=== PATIENT | male | born 1965 | race African-American/Black ===

== ENCOUNTER 2020-11-13 07:06 | Outpatient (CLI) | payer BC, SELFPAY ==
--- NOTE | ~2020-11-13 | MR_ITS ---
EXAMINATION: MR knee RT wo con DATE: 11/13/2020 08:31 INDICATION: Other instability, right knee. TECHNIQUE: Magnetic resonance imaging (MRI) of the right knee was performed without intravenous contr ast. Sequences included axial PD-weighted FS FSE, coronal PD-weighted FSE and PD-weighted FS FSE, sag ittal PD-weighted FSE, and sagittal T2-weighted FS FSE. COMPARISON: Right knee radiographs 10/07/2018 FINDINGS: Medial compartment: There is a radial tear of posterior horn of medial meniscus with torn bucket-handle component in the intercondylar notch. There is cartilage surface irregularity of tibial condyle and femoral condyle. T here is deep partial thickness cartilage loss of femoral condyle involving the posterior articular alberto rface. Lateral compartment: Lateral meniscus is normal. There is cartilage surface irregularity of tibial condyle. Femoral cartil age is normal. Patellofemoral compartment: There is deep partial thickness cartilage loss of patellar lateral facet. There is shallow partial-th ickness cartilage loss of medial and lateral trochlea. Ligaments and tendons: The anterior and posterior cruciate ligaments are normal. There are changes of prior sprains of media l collateral ligament and fibular collateral ligament characterized increased signal intensity proxim ally. There is mild patellar tendinopathy. Fluid: There is a small knee joint effusion. There is trace fluid in a Blandon's cyst. There is mild prepatell ar and superficial infrapatellar bursitis. IMPRESSION: 1. Moderate chondrosis of medial and patellofemoral compartments and mild chondrosis of lateral don rtment. 2. Tear of medial meniscus. 3. Small knee joint effusion. Reviewed, dictated and finalized at location A. OILER IMPRESSION: 1. Moderate chondrosis of medial and patellofemoral compartments and mild chond rosis of lateral compartment. 2. Tear of medial meniscus. 3. Small knee joint effusion.
== END 2020-11-13 07:07 | disposition home or self-care (01) ==
PROVIDERS: PCP Family Medicine; Visit Provider Family Medicine
DX: S83.241A Other tear of medial meniscus, current injury, right knee, initial encounter (principal); M25.461 Effusion, right knee; M71.21 Synovial cyst of popliteal space [Baker], right knee
CPT/HCPCS: 73721

== ENCOUNTER 2020-11-21 08:36 | Outpatient (CLI) | payer BC, SELFPAY ==
--- NOTE | 2020-11-21 08:48 | ECHO_ITS ---
Patient Info Name: Leana Guevara Age: 55 years : 1965 Gender: Male Ht: 71 in Wt: 294 lbs BSA: 2.64 m2 HR: 55 bpm BP: 149 / 91 mmHg Technical Quality: Fair Exam Date: 11/21/2020 9:15 AM Exam Location: [facility] Patient Status: Outpatient Admit Date: 11/21/2020 Staff Ordering Physician: Hadley Paz DO Plant Equipment Engineer: Dale Duncan RDCS Attending Provider: Hadley Paz DO Referring Physician: Jackson LANDAVERDE; Exam Type: CA echo dop color flow w con Study Info Indications R06.02 - Shortness of breath Complete two-dimensional, color flow and Doppler transthoracic echocardiogram is performed with contrast to opacify the left ventricle and to improve the deliniation of the left ventricle endocardial borders. Contrast/Agitated Saline Contrast/Ag. Saline: Definity Amount: 3.00 ml Administered By: Cyndi Oviedo RN Existing IV Access: Yes History/Risk Factors Shortness of breath, atrial fibrillation; HTN. Summary 1. Left ventricular chamber dimension is normal. 2. Definity contrast administered improved wall motion interpretation. 3. Left ventricular systolic function is normal, estimated at 60-65%. 4. The left ventricular diastolic function is normal. 5. E/e' 8 is minimally elevated. 6. Left atrial chamber dimension is mildly enlarged. 7. Mild pulmonary hypertension, estimated pulmonary arterial systolic pressure is 40 mmHg. Left Ventricle E/e' 8 is minimally elevated. Definity contrast administered improved wall motion interpretation. Left ventricular chamber dimension is normal. Left ventricular systolic function is normal, estimated at 60-65%. The left ventricular diastolic function is normal. Right Ventricle Right ventricular systolic function is normal based on TAPSE of 2.3 cm. Right ventricular chamber dimension is not well visualized. Left Atria Left atrial chamber dimension is mildly enlarged. Right Atria Right atrial chamber dimension is not well visualized. Aortic Valve The aortic valve is trileaflet. There is no aortic valve stenosis. There is no aortic valve regurgitation. Pulmonic Valve There is no pulmonic regurgitation. Mitral Valve There is no mitral valve stenosis. There is no mitral valve regurgitation. Tricuspid Valve There is no tricuspid valve regurgitation. Mild pulmonary hypertension, estimated pulmonary arterial systolic pressure is 40 mmHg. Pericardium/Pleural There is no pericardial effusion. Inferior Vena Cava Normal inferior vena cava with >50% collapse upon inspiration consistent with normal right atrial pressure, 5 mmHg. Aorta The aortic root size at the sinus of Valsalva is normal. Left Ventricular Outflow Tract Name Value Normal LVOT 2D LVOT Diameter 2.03 cm LVOT Doppler LVOT Peak Gradient 5 mmHg LVOT Mean Gradient 2 mmHg LVOT VTI 23.47 cm LVOT VTI/AV VTI Ratio 0.70 LVOT Stroke Volume 76.14 ml LVOT CO
== END 2020-11-21 08:37 | disposition home or self-care (01) ==
PROVIDERS: PCP Family Medicine; Visit Provider Internal Medicine Cardiovascular Disease
DX: G47.33 Obstructive sleep apnea (adult) (pediatric) (principal); Z99.89 Dependence on other enabling machines and devices; I51.7 Cardiomegaly
CPT/HCPCS: C8929

== ENCOUNTER 2021-05-28 08:44 | Outpatient (CLI) | payer BC, SELFPAY ==
--- NOTE | 2021-05-28 09:00 | ECG_ITS ---
Measurements Intervals Severy Rate: 52 P: 35 TX: 141 QRS: 68 QRSD: 124 T: -4 QT: 420 QTc: 394 Interpretive Statements SINUS BRADYCARDIA INTRAVENTRICULAR CONDUCTION DELAY MINIMAL Q WAVES- INFERIOR LEADS BORDERLINE ST-T WAVE ABNORMALITY- INFERIOR LEADS BORDERLINE ECG Electronically Signed On 05-28-2021 9:04:13 CDT by Hadley Paz D.O.
[2021-05-28 09:18] LABS: Anion Gap 11 mmol/L (8-16); Blood Urea Nitrogen 16 mg/dL (9-20); Calcium 9.2 mg/dL (8.4-10.2); Carbon Dioxide 35 mmol/L (22-30); Chloride 97 mmol/L (98-107); Estimated Glomerular Filt Rate > 60; Glucose 111 mg/dL (65-110); Potassium 3.2 mmol/L (3.4-5.0); Sodium 143 mmol/L (137-145)
== END 2021-05-28 08:45 | disposition home or self-care (01) ==
LOC: ANHSURGERY 08:50
PROVIDERS: Anesthesiology; PCP Family Medicine; Visit Provider Orthopaedic Surgery
DX: Z01.818 Encounter for other preprocedural examination (principal); I10 Essential (primary) hypertension
CPT/HCPCS: 36415; 80048; 93005

== ENCOUNTER 2021-05-31 01:51 | Day surgery (SDC) | payer BC, SELFPAY ==
[2021-05-27 14:37] VITALS: BMI 41.6
--- NOTE | 2021-05-30 14:26 | WPDANESEPPF ---
Anes - Initial Pre Proc Eval Procedure: Operation Date: 05/31/21 13:30 Proposed Procedures p Right Knee Arthroscopy, Partial Medial Meniscectomy - Rahat Lorenzo MD Date/Time: 05/30/21 14:26 Surgeon: Rahat Lorenzo MD Pre Op Diagnosis: bucket handle meniscus tear rt. knee Patient Data Age: 56 Gender: M Height: 1.8 m Weight: 135.45 kg Allergies Allergy/AdvReac Type Severity Reaction Status Date / Time No Known Allergies Allergy Verified 05/31/21 12:10 Home Medications Medication Instructions Recorded Confirmed Type potassium chloride 20 mEq 20 meq PO BID #60 tablet 04/25/20 05/31/21 Rx tablet,extended release hydrochlorothiazide 25 mg tablet 25 mg PO DAILY #30 tablet 04/15/21 05/31/21 Rx furosemide 40 mg tablet 40 mg PO QAM #30 tablet 05/16/21 05/31/21 Rx ibuprofen 800 mg tablet 800 mg PO TID PRN #60 tablet 05/20/21 05/31/21 Rx Patient hx anesthesia problems: none Family hx anesthesia problems: none PMFSH Past Medical History Medical History Body mass index (BMI) of 40.1 to 44.9 in adult Cardiac arrhythmia Essential (primary) hypertension Low vitamin B12 level KRISHAN on CPAP Polyarthritis Right knee buckling Type 2 diabetes mellitus without complications Family History Family History Father Carcinoma of colon Mother Family history of malignant neoplasm of ovary Family history of malignant neoplasm Family history of pancreatic cancer, Onset Age: 75 Social History Social History Alcohol intake: never Living arrangements: with family Spiritual care concerns: No Anes - Eval Final PreProcedure Day of Procedure 05/30/21 14:26 Patient weight: morbidly obese Heart: regular rate and rhythm Lungs: clear to auscultation and normal air movement Airway: Mallampati scale class II Neurological: alert and oriented Last oral intake: >/= 8 hours ASA classification: III Emergent: no Anesthetic plan: proceed Anesthesia type and monitoring: general LMA and standard monitoring Informed Consent: The patient's anesthetic plan and its attendant risks and benefits were discussed with the patient/family/POA. Questions were solicited and answers provided to the satisfaction of the patient/family/POA.
[2021-05-31] VITALS (7 sets, daily range): BP systolic 134–162; BP diastolic 45–87; PULSE 56–67; RESP 16–20; TEMP 36.1–36.4; O2SAT 95–100
[2021-05-31] MEDS: ACETAMINOPHEN 500 MG TABLET 1000 MG PO (12:24)
[2021-05-31] MEDS: LACTATED RINGERS 1,000 ML 30 ML IV CONT (12:40)
[2021-05-31] MEDS: KETOROLAC 15 MG/ML VIAL (*BKC) IV PUSH (12:49)
--- NOTE | 2021-05-31 13:25 | WPDHPUPDATE1 ---
History and Physical Update Update Date/Time: 05/31/21 13:25 History and Physical has been reviewed, including an updated exam of the patient. There are NO changes in the patient's condition. Risks, benefits, and alternatives have been discussed and questions answered. Patient agrees to proceed with procedure.
[2021-05-31] MEDS: ceFAZolin 3 GM/D5W 100 ML 100 ML IVPB (13:34)
[2021-05-31] MEDS: BUPIVACAINE/EPINEPHRINE 0.5% 10 ML VIAL 20 ML INFILTRATE (14:23)
--- NOTE | 2021-05-31 15:46 | P.OP_ITS ---
Procedure Note - Detailed Date of Procedure 05/31/21 Pre-op Diagnosis Medial meniscus tear rt. knee Post-op Diagnosis same Procedure Performed Arthroscopic partial medial meniscectomy, right knee with medial femoral chondroplasty. Surgeon Rahat Lorenzo MD Lining Mechanic Leda Pisano PA-C Anesthesia general Findings Complex posterior horn and medial, medial meniscus tear. Fllz-im-amyepghr chondromalacia in the medial compartment. Minimal patellofemoral changes and very subtle changes at the lateral anterior tibia only. The central weight- bearing portion of the medial femoral condyle had a large irregular area of grade 3 chondromalacia which appeared partially healed. Not amenable to microfracture. Loose edges of the defect appeared to be likely catching on the meniscus tear which was debrided. Description of Procedure Procedure Details: The patient was identified and the surgical site confirmed and signed in the preoperative holding area. Antibiotics were started per protocol. She was brought to the operative room and transferred to the OR table. A general anesthetic was administered. Supine position with the operative lower extremity position in the leg jacob after placement of a well padded tourniquet. The leg support was lowered and the contralateral limb was supported with a soft bolster. The knee was prepped and draped in the usual sterile fashion. A time-out was performed. The portal sites were marked and infiltrated with 0.5% Marcaine 20 mL. The limb was exsanguinated and the tourniquet inflated to 300 mL Hg. Standard inferolateral and inferomedial portals were established. Inflow was obtained with the saline pump. The camera was introduced. Diagnostic inspection of the joint was accomplished. The meniscus was debrided with the arthroscopic shaver and punches until stable. The radiofrequency probe was also used. There was grade 3 chondromalacia on the medial femur and grade 1 chondromalacia on the tibia. The lateral tibia had a very small area of subtle grade 1 chondromalacia. The femur was normal. The anterior cruciate ligament was intact. The trochlea had grade 2 chondromalacia. The patella grade 1. There was an area of grade 3 chondromalacia on the central weight-bearing por tion of the medial femoral condyle. The loose delaminated border was gently debrided until stable. The defect was large and irregular, not amenable to microfracture. The arthroscopic instruments were removed. The tourniquet released and wounds closed with subcutaneous 3-0 Monocryl absorbable suture. Steri strips and a sterile dressing were applied. A light elastic wrap was placed. The patient was extubated and brought to the recovery room in stable condition. Estimated Blood Loss -10.0 Complications No immediate complications Condition stable Disposition PACU
== END 2021-05-31 16:40 | disposition home or self-care (01) ==
PROVIDERS: PCP Family Medicine; Visit Provider Orthopaedic Surgery
PROC: (CPT 29870; principal; 2021-05-31 13:30)
DX: M23.221 Derangement of posterior horn of medial meniscus due to old tear or injury, right knee (principal); M94.261 Chondromalacia, right knee; M17.11 Unilateral primary osteoarthritis, right knee; M25.561 Pain in right knee; G47.33 Obstructive sleep apnea (adult) (pediatric); E66.01 Morbid (severe) obesity due to excess calories; Z68.41 Body mass index [BMI] 40.0-44.9, adult; E11.9 Type 2 diabetes mellitus without complications; I10 Essential (primary) hypertension; I49.9 Cardiac arrhythmia, unspecified; D51.9 Vitamin B12 deficiency anemia, unspecified
CPT/HCPCS: 29881; A9270; J0690; J1100; J1885; J2250; J2405; J2704; J3010; J7120

== ENCOUNTER → 2022-03-08 09:14 | Outpatient (CLI) | payer BC, SELFPAY ==
--- NOTE | ~2022-03-08 | US_ITS ---
US venous doppler LE RT DATE: 03/08/2022 09:42 INDICATION: Right lower leg pain, calf pain. Numbness in foot and toes TECHNIQUE: Real-time imaging, color flow imaging and Doppler analysis of the veins of the right lower extremity COMPARISON: None FINDINGS: The right greater saphenous vein is patent. There is spontaneous and phasic flow and normal augmentation and color flow signal and normal compression of the deep veins of the right lower extre mity. IMPRESSION: No evidence of deep venous thrombosis of right lower extremity Reviewed, dictated and finalized at Location A. Reviewed, dictated and finalized at location A.
== END ==
PROVIDERS: PCP Family Medicine; Visit Provider Family Medicine
DX: M79.661 Pain in right lower leg (principal)
CPT/HCPCS: 93971

== ENCOUNTER 2022-04-24 10:39 | Outpatient (CLI) | payer BC, SELFPAY ==
--- NOTE | 2022-04-24 12:00 | NEURO_ITS ---
Impression: # Complains of difficulty in controlling right foot during ambulation. # Right peroneal neuropathy. # Needle/EMG exam neurogenic # Possibility of higher involvement needs to be ruled out. Nerve Conduction Studies Anti Sensory Summary Table Stim Site NR Peak (ms) P-T Amp (?V) Site1 Site2 Delta-P (ms) Dist (cm) Arnel (m/s) Left Sup Fibular Anti Sensory (Ant Lat Mall) 14 cm 2.4 14.7 14 cm Ant Lat Mall 2.4 16.0 67 Right Sup Fibular Anti Sensory (Ant Lat Mall) 14 cm 3.3 10.7 14 cm Ant Lat Mall 3.3 16.0 48 Left Sural Anti Sensory (Lat Mall) Calf 3.6 15.5 Calf Lat Mall 3.6 16.0 44 Right Sural Anti Sensory (Lat Mall) NO RESPONSE Calf NR Calf Lat Mall 16.0 Motor Summary Table Stim Site NR Onset (ms) O-P Amp (mV) Site1 Site2 Delta-0 (ms) Dist (cm) Arnel (m/s) Left Lateral Plantar Motor (ADM) Med Mall 5.3 0.8 Right Lateral Plantar Motor (ADM) Med Mall 5.4 1.9 Left Peroneal Motor (Vastus Med) Ankle 3.8 3.8 Popit Ankle 9.2 44.0 48 Popit 13.0 3.7 Right Peroneal Motor (Vastus Med) POOR RESPONSE Ankle NR Popit Ankle 0.0 Popit NR Left Tibial Motor (Abd Pisano Brev) Ankle 4.5 0.7 Knee Ankle 10.5 45.0 43 Knee 15.0 1.8 Right Tibial Motor (Abd Pisano Brev) Ankle 4.8 1.8 Knee Ankle 9.3 44.0 47 Knee 14.1 1.7 F Wave Studies NR F-Lat (ms) L-R F-Lat (ms) Left Peroneal (Mrkrs) (EDB) 55.63 Right Peroneal (Mrkrs) (EDB) NO RESPONSE NR Left Tibial (Mrkrs) (Abd Hallucis) 55.88 Right Tibial (Mrkrs) (Abd Hallucis) NO RESPONSE NR EMG Side Muscle Nerve Root Ins Act Fibs Amp Dur Recrt Comment Right AntTibialis Dp Br Fibular L4-5 Nml Nml Nml >12ms Reduced Right Gastroc Tibial S1-2 Nml Nml Nml Nml Nml Right Fibularis Long Sup Br Fibular L5-S1 Nml Nml Nml >12ms Reduced Right Flex Dig Long Tibial L5-S2 Nml Nml Nml Nml Nml Right Ext Dig Brev Dp Br Fibular L5, S1 Nml Nml Nml >12ms Reduced Left AntTibialis Dp Br Fibular L4-5 Nml Nml Nml Nml Nml Left Gastroc Tibial S1-2 Nml Nml Nml Nml Nml Left Fibularis Long Sup Br Fibular L5-S1 Nml Nml Nml Nml Nml Left Flex Dig Long Tibial L5-S2 Nml Nml Nml Nml Nml Left Ext Dig Brev Dp Br Fibular L5, S1 Nml Nml Nml Nml Nml Right QuadratusFem QuadFemoris L4-5, S1 Nml Nml Nml Nml Reduced Left QuadratusFem QuadFemoris L4-5, S1 Nml Nml Nml Nml Nml MTDD
== END 2022-04-24 10:40 | disposition home or self-care (01) ==
LOC: ANHNEURO 10:40
PROVIDERS: PCP Family Medicine; Visit Provider Family Medicine
DX: M21.371 Foot drop, right foot (principal); G62.9 Polyneuropathy, unspecified
CPT/HCPCS: 95886; 95911

== ENCOUNTER 2022-05-23 10:10 | Outpatient (CLI) | payer BC, SELFPAY ==
--- NOTE | ~2022-05-23 | MR_ITS ---
EXAMINATION: MR brain/brain stem wo con DATE: 05/23/2022 10:48 INDICATION: Right-sided foot drop. Neuropathy. Weakness of the lower extremities. TECHNIQUE: Magnetic resonance imaging (MRI) of the brain and brainstem was performed without intraven ous contrast. COMPARISON: None. FINDINGS: There is no intracranial hemorrhage, acute infarction, or abnormal intracranial mass lesion . The ventricles are normal in size. The paranasal sinuses are clear. The orbits are normal. There is a trace left mastoid effusion. IMPRESSION: 1. Normal brain. Reviewed, dictated and finalized at location A. IMPRESSION: 1. Normal brain.
== END 2022-05-23 10:11 ==
PROVIDERS: PCP Family Medicine; Visit Provider Family Medicine
DX: M21.371 Foot drop, right foot (principal); R53.1 Weakness; G62.9 Polyneuropathy, unspecified
CPT/HCPCS: 70551

== ENCOUNTER 2022-05-29 16:08 | Outpatient (CLI) | payer BC, SELFPAY ==
--- NOTE | ~2022-05-29 | XR_ITS ---
EXAMINATION: XR lumbar spine 6V w bending DATE: 05/29/2022 16:42 INDICATION: Right-sided foot drop. TECHNIQUE: 7 views of lumbar spine including flexion and extension views were obtained. COMPARISON: Lumbar spine radiographs 01/27/2011 FINDINGS: There is 3 mm anterolisthesis of L4 on L5. The spine is hypomobile with flexion and extensi on. Vertebral body heights are normal. There is mildly decreased disc height at L3-L4 and L4-L5 and m oderately decreased disc height at L5-S1. There are endplate osteophytes at all levels. There are lianne dging endplate osteophytes from the thoracic spine to L2, consistent with diffuse idiopathic skeletal hyperostosis (DISH). There is multilevel facet joint osteoarthritis, severe bilaterally at L4-L5 and L5-S1. IMPRESSION: 1. Moderate lumbar spondylosis. 2. DISH. Reviewed, dictated and finalized at location A.
== END 2022-05-29 16:09 | disposition home or self-care (01) ==
PROVIDERS: PCP Family Medicine; Visit Provider Family Medicine
DX: G57.30 Lesion of lateral popliteal nerve, unspecified lower limb (principal); M21.371 Foot drop, right foot; M47.816 Spondylosis without myelopathy or radiculopathy, lumbar region; M48.16 Ankylosing hyperostosis [Forestier], lumbar region
CPT/HCPCS: 72114

== ENCOUNTER 2022-07-25 07:01 | Outpatient (CLI) | payer BC, SELFPAY ==
--- NOTE | ~2022-07-25 | MR_ITS ---
EXAMINATION: MR lumbar spine wo con DATE: 07/25/2022 07:46 INDICATION: Lumbar degenerative disc disease. Foot drop. TECHNIQUE: Magnetic resonance imaging (MRI) of the lumbar spine was performed without intravenous con trast. Sequences included sagittal T2-weighted FSE, sagittal T2-weighted FS FSE, sagittal T1-weighted FSE, and axial T2-weighted FSE. COMPARISON: Lumbar spine MRI 06/14/2014, radiographs 05/29/2022 FINDINGS: Bone alignment is normal. Vertebral body heights are normal. There is mildly decreased disc height at L3-L4 and L4-L5 and moderately decreased disc height at L5-S1. There are bridging endplate osteophytes from the thoracic spine to L2, consistent with diffuse idiopathic skeletal hyperostosis (DISH). Epidural lipomatosis is noted. The distal spinal cord signal intensity is normal. The conus m edullaris is at L2. There is a fatty filum terminale. The following disc levels are specifically disc ussed: L1-L2: The disc does not extend beyond the endplate margin. There is moderate bilateral facet joint o steoarthritis. There is no neural foraminal stenosis. There is no central canal stenosis. L2-L3: The disc is mildly bulging. There is severe bilateral facet joint osteoarthritis. There is mil d bilateral neural foraminal stenosis. There is no central canal stenosis. L3-L4: The disc is bulging. There is severe bilateral facet joint osteoarthritis. There is mild bilat eral neural foraminal stenosis. There is mild central canal stenosis. L4-L5: The disc is bulging and has an annular fissure. There is severe bilateral facet joint osteoart hritis. There is mild bilateral neural foraminal stenosis. There is mild central canal stenosis. L5-S1: The disc is bulging and has an annular fissure. There is severe bilateral facet joint osteoart hritis. There is moderate bilateral neural foraminal stenosis. There is mild central canal stenosis. IMPRESSION: 1. Moderate lumbar spondylosis, stable from 06/14/2014. Reviewed, dictated and finalized at location A.
== END 2022-07-25 07:02 | disposition home or self-care (01) ==
PROVIDERS: PCP Family Medicine; Visit Provider Family Medicine
DX: M47.817 Spondylosis without myelopathy or radiculopathy, lumbosacral region (principal); M48.07 Spinal stenosis, lumbosacral region; M21.371 Foot drop, right foot
CPT/HCPCS: 72148

== ENCOUNTER 2022-10-01 16:07 | Outpatient (CLI) | payer BC, SELFPAY ==
--- NOTE | ~2022-10-01 | MR_ITS ---
EXAMINATION: MR lower leg RT wo/w con, MR femur RT wo/w con DATE: 10/01/2022 18:11 INDICATION: Concern for right peroneal neuropathy with foot drop. TECHNIQUE: 1. Magnetic resonance imaging (MRI) of the right femur was performed without and with 20 mL Multihanc e intravenous contrast. Sequences included axial and coronal T1-weighted FSE and fluid sensitive FSE STIR Precontrast axial T1-weighted FS FSE and post contrast axial and coronal T1-weighted FS FSE wer e also obtained. 2. MRI of the right lower leg was performed without and with 20 mL Multihance intravenous contrast ut ilizing the same contrast bolus. Sequences included axial and coronal T1-weighted FSE and fluid sensi tive FSE STIR Precontrast axial T1-weighted FS FSE and post contrast axial and coronal T1-weighted F S FSE were also obtained. COMPARISON: Lumbar spine MR dated 07/25/2022 FINDINGS: There is prominent increased fluid signal in much of the musculature of the right lower leg. This inc ludes the muscles in the anterior compartment, the anterolateral compartment in the deep posterior co mpartment as well as a portion of the medial and lateral heads of the gastrocnemius muscle but relati vely spares the soleus muscle. There is also increased fluid signal in the popliteus muscle. More sub tle and more patchy increased fluid signal is also seen in portions of the biceps femoris, semitendin osus and distal semimembranosus muscles and the posterior compartment thigh. No significant abnormal muscle signal is appreciated in the extensor or abductor compartments of the thigh or in the musculat ure about the right hip. There is suboptimal fat saturation at the proximal and distal margin of each of the 3 phase of imaging findings from the pelvis through the ankle where assessment for enhancemen t is limited. There does appear to be subtle muscular enhancement which appears to coincide spatially with the regions of increased fluid signal. There is mild fatty atrophy of some of the musculature p rimarily in the calf however this appears to include a similar degree the soleus muscle which appeare d otherwise spared of the increased T2 signal and enhancement seen in the majority of the remaining m usculature of the calf. The tendons associated with the musculature in the thigh and lower leg appear normal. The sciatic nerve beginning at the sciatic notch in the pelvis and extending to the distal thigh appe ars normal in caliber with no evident impinging masses or lesions along its course or abnormal signal or enhancement. The sciatic nerve bifurcates into the common peroneal and tibial branches just above level of the knee joint and each similarly demonstrates normal caliber with no abnormal signal or en hancement as they cross the knee and extending into the lower leg. No impinging lesions or masses juan jose ntified. In particular no ganglion cysts are seen along the course of the peroneal nerve either arisi ng from the knee or the proximal tibiofibular joint. There is normal bone marrow signal throughout wi th no reactive edema or pathologic marrow replacing process. No hip, knee or ankle joint effusion. Th ere is subcutaneous edema throughout the lower leg. Mild prostatomegaly. No pathologically enlarged l ymphadenopathy at the right groin. IMPRESSION: 1. Increased muscle signal and enhancement involving the majority the muscles at the right lower leg, relatively sparing the soleus muscle and to a significantly lesser degree some of the muscles in the posterior compartment of the right thigh. This appears to involve the nerve distributions of both th e peroneal and tibial nerves with no evident impinging lesions identified along the course of either nerve or the more proximal sciatic nerve. Review of prior lumbar spine MR however does demonstrate in addition to the previous noted moderate t o severe bilateral neural foraminal stenosis at L5-S1, there is also sign
== END 2022-10-01 16:08 | disposition home or self-care (01) ==
LOC: ANHIMG 16:10
PROVIDERS: PCP Family Medicine; Visit Provider Student in an Organized Health Care Education/Training Program
DX: M21.371 Foot drop, right foot (principal); G57.30 Lesion of lateral popliteal nerve, unspecified lower limb; M48.07 Spinal stenosis, lumbosacral region
CPT/HCPCS: 73720; A9577

== ENCOUNTER 2022-11-08 07:52 | Outpatient (CLI) | payer BC, SELFPAY ==
--- NOTE | ~2022-11-08 | XR_ITS ---
EXAM: XR lumbar spine min 4V DATE: 11/08/2022 08:22 HISTORY: M54.10, left side pain, radiates down legs, NKI . COMPARISON: 05/29/2022. FINDINGS: 5 nonrib-bearing lumbar-type vertebral bodies. Pedicles intact. 3 mm anterolisthesis at L4 -5. Very limited range of motion limits evaluation for dynamic listhesis although there does appear t o be slight reduction in the anterolisthesis at L4-5. Vertebral body heights preserved. Multilevel mi ld disc space narrowing and marginal osteophytosis including large bridging anterior osteophytes. Inc idental note of large bridging osteophytes in the lower thoracic spine. Multilevel facet sclerosis an d hypertrophy with multilevel interspinous narrowing. No fracture or dislocation. IMPRESSION: Multilevel degenerative disc disease. Suspect mild dynamic listhesis at L4-5. Multilevel facet arthropathy. Reviewed, dictated and finalized at location K. IED EXERCISE PHYSIOLOGIST IMPRESSION: Multilevel degenerative disc disease. Suspect mild dynamic listhesi s at L4-5. Multilevel facet arthropathy.
--- NOTE | ~2022-11-08 | CT_ITS ---
EXAMINATION: CT lumbar spine wo con DATE: 11/08/2022 08:38 INDICATION: Back pain. TECHNIQUE: Computed tomography (CT) of the lumbar spine was performed without intravenous contrast. A utomated exposure control and iterative reconstruction technique were employed. The dose-length produ ct was 1312.62 mGy-cm. COMPARISON: Lumbar spine MRI 07/25/2022 FINDINGS: Bone alignment is normal. Vertebral body heights are normal. There are endplate osteophytes at all levels with bridging from T11 to L1 vertebral bodies. There is mildly decreased disc height a t L3-L4, L4-L5, and L5-S1. Osseous central spinal canal is developmentally small in lumbar spine. The following disc levels are specifically discussed: L1-L2: The disc does not extend beyond the endplate margin. There is moderate right and severe left f acet joint osteoarthritis. There is no neural foraminal stenosis. There is no central canal stenosis. L2-L3: The disc is mildly bulging. There is severe bilateral facet joint osteoarthritis. There is mil d bilateral neural foraminal stenosis. There is mild central canal stenosis. L3-L4: The disc is bulging. There is severe bilateral facet joint osteoarthritis. There is mild bilat eral neural foraminal stenosis. There is mild central canal stenosis. L4-L5: The disc is bulging. There is severe bilateral facet joint osteoarthritis. There is moderate b ilateral neural foraminal stenosis. There is moderate central canal stenosis. L5-S1: The disc is bulging. There is severe bilateral facet joint osteoarthritis. There is severe abdoulaye ateral neural foraminal stenosis. There is mild central canal stenosis. IMPRESSION: 1. Moderate lumbar spondylosis. Reviewed, dictated and finalized at location A. CONSULTANT
== END 2022-11-08 07:53 | disposition home or self-care (01) ==
LOC: ANHIMG 07:53
PROVIDERS: PCP Family Medicine; Visit Provider Neurological Surgery
DX: M51.36 Other intervertebral disc degeneration, lumbar region (principal); M47.26 Other spondylosis with radiculopathy, lumbar region
CPT/HCPCS: 72110; 72131

== ENCOUNTER 2022-12-19 12:50 | Outpatient (CLI) | payer BC, SELFPAY | END 2022-12-19 12:51 | disposition home or self-care (01) | LOC: ANHAUDIO 12:52 | PROVIDERS: PCP Family Medicine; Visit Provider Family Medicine | DX: H90.3 Sensorineural hearing loss, bilateral (principal) | CPT/HCPCS: 92557; 92567 ==

== ENCOUNTER 2024-02-12 09:36 | Outpatient (CLI) | payer BC, SELFPAY ==
--- NOTE | ~2024-02-12 | XR_ITS ---
XR_CERV2-3V_CR DATE: 02/12/2024 10:18 INDICATION: Left neck and shoulder pain. Skin anesthesia. Fall. TECHNIQUE: AP, open-mouth, odontoid, lateral and swimmer views COMPARISON: None FINDINGS: There is straightening of the cervical spine which may be due to muscle spasm. C1 and C2 ar e normally aligned and the odontoid process is intact. No recent fracture or dislocation or locked fa cet or prevertebral soft tissue swelling is detected. Prominent anterior bridging osteophyte at C2-3. 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 IMPRESSION: Straightening of cervical spine, likely due to muscle spasm Multilevel mild to moderate degenerative disease Reviewed, dictated and finalized at [facility]. Reviewed, dictated and finalized at [facility].
== END 2024-02-12 09:37 | disposition home or self-care (01) ==
LOC: ANHIMG 09:44
PROVIDERS: PCP Family Medicine; Visit Provider Physician Assistant Medical
DX: R20.2 Paresthesia of skin (principal); R20.0 Anesthesia of skin; M53.82 Other specified dorsopathies, cervical region; M50.30 Other cervical disc degeneration, unspecified cervical region
CPT/HCPCS: 72040

== ENCOUNTER 2024-08-24 08:10 | Outpatient (CLI) | payer BC, SELFPAY ==
--- NOTE | ~2024-08-24 | NM_ITS ---
EXAMINATION: NM catherine stress w perfusion DATE: 08/24/2024 10:27 INDICATION: Other forms of dyspnea TECHNIQUE: Rest images were obtained following intravenous administration of 9.5 mCi Tc99m tetrofosmi n (Myoview). The patient was infused intravenously with Lexiscan (Regadenoson). Then, 29 mCi Tc99m te trofosmin (Myoview) was administered intravenously, and stress images were obtained. Data was reconst ructed into short axis and horizontal and vertical long axis SPECT images. Gated SPECT images were al so obtained. COMPARISON: None. FINDINGS: There is no definite reversible or fixed perfusion abnormality to suggest ischemia or infar ction. There is normal left ventricular chamber size, wall motion and ejection fraction. Left ventr icular ejection fraction measures 67%. IMPRESSION: 1. Normal myocardial perfusion at rest and during stress. 2. Left ventricular ejection fraction measuring 67%. Reviewed, dictated and finalized at location [facility].
--- NOTE | 2024-08-24 08:14 | ECHO_ITS ---
Patient Info Name: Leana Guevara Age: 59 years : 1965 Gender: Male Ht: 71 in Wt: 310 lbs BSA: 2.72 m2 HR: 66 bpm BP: 199 / 116 mmHg Heart Rhythm: Sinus Rhythm Technical Quality: Poor Exam Date: 08/24/2024 10:13 AM Exam Location: Echo Lab Patient Status: Outpatient Admit Date: 08/24/2024 Staff Ordering Physician: Hadley Paz DO Family Life Educator: Sasha Rachel RDCS Attending Provider: Hadley Paz DO Referring Physician: Jackson LANDAVERDE; Exam Type: CA echo dop color flow w con Study Info Indications R06.09 - Other forms of dyspnea Complete two-dimensional, color flow and Doppler transthoracic echocardiogram is performed with contrast to opacify the left ventricle and to improve the deliniation of the left ventricle endocardial borders. Contrast/Agitated Saline Contrast/Ag. Saline: Definity Amount: 3.00 ml Administered By: Sasha Rachel RDCS Existing IV Access: Yes IV Access Condition: patent with no signs of infiltration Site Condition: IV removed Summary 1. Technically suboptimal study due to poor sonographic images. 2. Definity contrast administered improved wall motion interpretation. 3. Left ventricular chamber dimension is normal. 4. Left ventricular systolic function is normal, estimated at 60-65%. 5. The left ventricular diastolic function is grade I diastolic dysfunction. 6. E/e' 10 is mildly elevated. 7. Left atrial chamber dimension is mildly enlarged. Left Ventricle Technically suboptimal study due to poor sonographic images. E/e' 10 is mildly elevated. Definity contrast administered improved wall motion interpretation. Left ventricular chamber dimension is normal. Left ventricular systolic function is normal, estimated at 60-65%. The left ventricular diastolic function is grade I diastolic dysfunction. Right Ventricle Right ventricular systolic function is normal and with normal TAPSE 2.4 cm. Right ventricular chamber dimension is normal. Left Atria Left atrial chamber dimension is mildly enlarged. Right Atria Right atrial chamber dimension is normal. Aortic Valve The aortic valve is trileaflet. There is no aortic valve stenosis. There is no aortic valve regurgitation. Pulmonic Valve There is no pulmonic regurgitation. Mitral Valve There is no mitral valve stenosis. There is no mitral valve regurgitation. Tricuspid Valve There is no tricuspid valve regurgitation. Pericardium/Pleural There is no pericardial effusion. Inferior Vena Cava Normal inferior vena cava with >50% collapse upon inspiration consistent with normal right atrial pressure, 5 mmHg. Aorta The aortic root size at the sinus of Valsalva is normal. Left Ventricular Outflow Tract Name Value Normal LVOT 2D LVOT Diameter 2.08 cm LVOT Doppler LVOT Peak Gradient 1 mmHg LVOT Mean Gradient 0 mmHg LVOT VTI 7.79 cm LVOT VTI/AV VTI Ratio 0.36 LVOT Stroke Volume 26.44 ml LVOT CO 1.65 l/min LVOT CI 0.61 L/min/m2 Pulmonic Valve ---
--- NOTE | 2024-08-24 08:15 | EST_ITS ---
Patient Info Name: Leana Guevara Age: 59 years : 1965 Gender: Male Ht: 71 in Wt: 310 lbs BSA: 2.72 m2 HR: 66 bpm BP: 176 / 94 mmHg Heart Rhythm: Sinus Rhythm Exam Date: 08/24/2024 9:10 AM Exam Location: Echo Lab Patient Status: Outpatient Admit Date: 08/24/2024 Staff Ordering Physician: Hadley Paz DO Attending Provider: Hadley Paz DO Exercise Technologist: Carolyn Johnson CT Exercise Physician: Hadley Paz DO Exam Type: CA stress catherine w NM Study Info Indications R06.09 - Other forms of dyspnea A regadenoson stress test was performed. Summary 1. 1. Negative lexiscan stress test for ischemic ST changes by ECG criteria. 2. 2. Baseline hypertension. 3. 3. Nuclear scan to follow and will be reported separately. Please correlate with it. 4. 4. Patient informed of the above results. Protocol: Lexiscan Stress ECG Details Stage: REST Duration (min): 5 min : 33 sec HR (bpm): 65 SBP (mmHg): 176 DBP (mmHg): 94 Stage: REST Duration (min): 16 min : 14 sec HR (bpm): 60 SBP (mmHg): 176 DBP (mmHg): 94 Stage: STAGE 1 Duration (min): 0 min : 59 sec HR (bpm): --- SBP (mmHg): 180 DBP (mmHg): 82 Stage: RECOVERY Duration (min): 1 min : 0 sec HR (bpm): 89 SBP (mmHg): 180 DBP (mmHg): 82 Stage: RECOVERY Duration (min): 2 min : 0 sec HR (bpm): 80 SBP (mmHg): 180 DBP (mmHg): 82 Stage: RECOVERY Duration (min): 3 min : 0 sec HR (bpm): 78 SBP (mmHg): 180 DBP (mmHg): 82 Stage: RECOVERY Duration (min): 3 min : 28 sec HR (bpm): 75 SBP (mmHg): 158 DBP (mmHg): 89 Rest HR: 60 bpm Peak HR: 98 bpm Rest Sys BP: 176 mmHg Peak Sys BP: 180 mmHg Max Pred HR: 163 bpm % Max Pred HR: 60 % Target HR: 139 bpm Max RPP: 17,640 bpm*mmHg Termination Reason: Completed protocol Cardiac Symptoms: Shortness of breath Total Time: 1 min : 0 sec Rest Sims BP: 94 mmHg Peak Sims BP: 82 mmHg Total Dose: 0.4 mg Resting ECG Sinus rhythm. Stress ECG No ST changes. Arrhythmias None. Report Signatures
[2024-08-24] MEDS: PERFLUTREN LIPID MICROSPHERES 1.5 ML VIAL DILUTED TO 10 ML TOTAL VOLUME IV PUSH (10:40)
--- NOTE | 2024-08-24 11:03 | IVDEFINITY ---
Prior to administration of IV Definity the patient was educated on the risks and benefits of the imaging enhancing agent including potential adverse side effects. The patient verbalized understanding. Allergies were verified. No exclusion criteria were identified and at least one of the following inclusion criteria were met: 1) physician request, 2) patient technically difficult to image (per the [place] [employer] guidelines of two or more segments not discernable within the apical view), or 3) questionable left ventricular function. ?
== END 2024-08-24 08:11 | disposition home or self-care (01) ==
PROVIDERS: PCP Family Medicine; Visit Provider Internal Medicine Cardiovascular Disease
DX: I51.9 Heart disease, unspecified (principal); R06.09 Other forms of dyspnea
CPT/HCPCS: 78452; 93017; A9502; C8929; J2785; Q9957